=== PATIENT | male | born 1990 | race Hispanic/Latino ===

== ENCOUNTER 2016-08-19 05:56 | Day surgery (SDC) | payer OTHER ==
[~2016-08-19 05:56] MED LIST: OMNIPAQUE 300 MG/50 ML (CATH LAB) IV ONE; WATER FOR IRRIG STERILE IR ONE
[2016-08-19] MEDS ORDERED: SUBLIMAZE IV PRN (07:01)
[2016-08-19] MEDS ORDERED: ZOFRAN IV PRN (07:01)
--- NOTE | 2016-08-19 07:02 | Anesthesia Day of Surgery ---
Anesthesia Day of Surgery - Day of Surgery Patient Examined: Yes Patient H&P Reviewed: Yes Patient is NPO: Yes
--- NOTE | 2016-08-19 07:03 | Anesthesia Consultation ---
Anesthesia Consult and Med Hx Date of service: 08/19/16 - Airway Anesthetic Teeth Evaluation: Good ROM Head & Neck: Adequate Mental/Hyoid Distance: Adequate Mallampati Class: Class I Intubation Access Assessment: Good - Pulmonary Exam CTA: Yes (clear blbs) - Cardiac Exam Cardiac Exam: RRR - Pre-Operative Health Status ASA Pre-Surgery Classification: ASA2 Proposed Anesthetic Plan: General - Pulmonary Hx Smoking: No Hx Asthma: Yes (NO MEDS) Hx Sleep Apnea: No (BHARGAVI PRE SCREEN LOW RISK) - Other Systems Hx Cancer: No
[2016-08-19] MEDS ORDERED: DIPRIVAN 10 MG/ML IV ONE (07:07)
[2016-08-19] MEDS ORDERED: XYLOCAINE MPF 2% ONE (07:07)
[2016-08-19] MEDS ORDERED: VERSED IV NR (08:00)
[2016-08-19] MEDS ORDERED: NACL 0.9% 1000 ML 1,000 ML IV SCH (08:00)
[2016-08-19] MEDS ORDERED: PEPCID PO NR (08:00)
[2016-08-19] MEDS ORDERED: DECADRON ONE (08:17)
[2016-08-19] MEDS ORDERED: ZOFRAN ONE (08:17)
[2016-08-19] MEDS ORDERED: WATER FOR IRRIG STERILE IR ONE (08:19)
--- NOTE | 2016-08-19 08:19 | Short Stay Summary ---
Short Stay Documentation Date of service: 08/19/16 - History H&P: obtained from office - Allergies and Medications Current Medications: Allergies No Known Allergies Allergy (Verified 08/18/16 16:50) Home Medications Medication Instructions Recorded Confirmed Last Taken Type No Known Home Medications [No 08/18/16 08/18/16 Unknown History Reported Home Medications] Active Medications Famotidine (Pepcid) 20 mg PO PREOP NR Stop: 08/19/16 23:59 Last Admin: 08/19/16 07:48 Dose: 20 mg Fentanyl (Sublimaze) 50 mcg IV Q5MIN PRN PRN Reason: Pain , Severe (7-10) Stop: 08/19/16 18:00 Hydromorphone HCl (Dilaudid) 0.5 mg IV Q10MIN PRN PRN Reason: Pain , Severe (7-10) Stop: 08/19/16 18:00 Sodium Chloride (Nacl 0.9% 1000 Ml) 1,000 mls @ 100 mls/hr IV DIRECT MAURICIO Last Admin: 08/19/16 07:50 Dose: 100 mls/hr Midazolam HCl (Versed) 2 mg IV PREOP NR Stop: 08/19/16 23:59 Last Admin: 08/19/16 07:51 Dose: 2 mg Ondansetron HCl (Zofran) 4 mg IV ONCE PRN PRN Reason: Nausea And Vomiting Stop: 08/19/16 18:00 - Brief post op/procedure progress note Date of procedure: 08/19/16 Pre-op diagnosis: right ureteral stone 6mm Post-op diagnosis: same Procedure: cyst rpg urs, laser, sbe; stent 6x28; staged for removla; dilation all right Anesthesia: GETA Findings: impacted wall; sig edema; Surgeon: MITCH RALPH Estimated blood loss: minimal Pathology: list (stone) Specimen disposition: to lab Condition: stable - Hospital course Hospital course: orpacuhome - Disposition Condition at discharge: Good Disposition: DISCHARGED TO HOME OR SELFCARE Short Stay Discharge Plan Activity: advance as tolerated Diet: advance as tolerated Follow up with: MITCH RALPH MD [Staff Physician] - 7 Days
[2016-08-19] MEDS ORDERED: OMNIPAQUE 300 MG/50 ML (CATH LAB) IV ONE (08:23)
[2016-08-19] MEDS ORDERED: SUBLIMAZE ONE (09:28)
[2016-08-19] MEDS: DILAUDID IV PRN ×2 (10:00→10:10)
--- NOTE | 2016-08-19 10:21 | Post Anesthesia Evaluation ---
- Post Anesthesia Evaluation Patient Participated: Yes Airway Patent: Yes Stable Respiratory Function: Yes Nausea/Vomiting: No Temp > 96.8F: Yes Pain Manageable: Yes Adequeate Hydration: Yes Anesthesia Complications: No Block Receding Appropriately: Not Applicable Patient on Ventilator: No
[2016-08-19 11:12] VITALS: BP 131/72
--- NOTE | 2016-08-19 12:01 | Fluoroscopy Report ---
Retrograde pyelogram and ureteral dilatation: Small calculus identified in the low right pelvis. Injection of contrast into the left ureter demonstrates a normal collecting system. No filling defects noted. Injection on the right side demonstrates dilatation of the short segment of ureter ureter proximal to the distal calculus. A wire was subsequently passed into the renal collecting system. There is dilatation of the distal right ureter. A nephroureteral stent was left in place. The distal calculus initially visualized is no longer identified.
--- NOTE | 2016-08-23 22:03 | Operative Report ---
PREOPERATIVE DIAGNOSIS: Right ureteral 6 mm stone. POSTOPERATIVE DIAGNOSIS: Right ureteral 6 mm stone. PROCEDURE: Cysto RPG, ureteroscopy, stone basket extraction, stent 6 x 28 staged for future removal, dilation of right ureter. ANESTHESIA: General. FINDINGS: Impacted in the wall, significant edema, stone. SURGEON: Josse Mohr MD ESTIMATED BLOOD LOSS: Minimal. PATHOLOGY: Stone. SPECIMENS: To lab. CONDITION: Stable, DISPOSITION: PACU home . CLINICAL INDICATIONS: The patient was counseled on RCBA, antibiotics, SCDs. The patient with pain, had a history of pain intermittently over the last one month, 2 weeks ago at [facility], then recently at [facility]. He and the family were recounseled on options including ESWL, ureteroscopy ____ management, other desire to proceed. DESCRIPTION OF PROCEDURE: The patient was transferred to the OR suite in supine position, anesthesia, dorsal lithotomy, had antibiotics and SCDs, prepped and draped in standard fashion. A 22 Ivorian scope passed, normal penile, bulbar, prostatic urethra. Pancystoscopy 30 ____. No abnormality. Left ____ cannulated 8 Ivorian cone-tipped catheter, contrast injected. Normal left distal ureter, proximal ureter, renal pelvis calyces. No filling defects or hydronephrosis. Repeated on the right side with right hydroureter. Glidewire passed adjacent to the stone up to the renal pelvis. Next, a rigid ureteroscope was attempted passing directly to the stone, unable to easily pass due to the distal stenosis and the impaction. A 4 cm ureteral balloon dilator was passed inflated at about 7 atmospheres for approximately 60 seconds, then removed. Rigid ureteroscope passed up to the stone. Holmium laser was used to fragment the stone into small pieces. This was done intermittently with intermittent pieces being fragmenting, removed with the triceps grasper dropped in the bladder. One fragment was sent for ____. Scope was then passed up to the proximal ureter. No significant residual stones, fragments removed and contrast injected, confirmed our position and the wire position. The scope was slowly withdrawn and inspected very carefully multiple times. No residual stones. Wire was backloaded on cystoscope. A 6 x 28 double-J stent was passed over the wire under direct and fluoroscopic visualization. Wire and string was removed, nice proximal and distal J. Of note, contrast was injected towards the end of the procedure. No extravasation noted. At this point, the scope was withdrawn. Exam under anesthesia, bilateral testicles, no masses. The patient was awakened and transferred to the PACU in good and stable condition. PLAN: Staged for future removal of stent. JOB# [id number] ATS/NTS
== END 2016-08-19 11:45 | disposition home or self-care (01) ==
LOC: OR 05:56
PROVIDERS: ATTEND Urology
DX: N20.1 Calculus of ureter (principal); J45.909 Unspecified asthma, uncomplicated
CPT/HCPCS: 36415; 52356; 74420; 74485; 82365; 88300; A4217; C1726; C1758; C1769; C2617; J1100; J1170; J2250; J2405; J2704; J3010; J7030; Q9967

== ENCOUNTER 2016-09-01 10:27 | Day surgery (SDC) | payer OTHER ==
[~2016-09-01 10:27] MED LIST changes: +OMNIPAQUE (300 MG) IR ONE; -OMNIPAQUE 300 MG/50 ML (CATH LAB) IV ONE; -WATER FOR IRRIG STERILE IR ONE
--- NOTE | 2016-09-01 10:58 | Anesthesia Day of Surgery ---
Anesthesia Day of Surgery - Day of Surgery Patient Examined: Yes Patient H&P Reviewed: Yes Patient is NPO: Yes
--- NOTE | 2016-09-01 10:58 | Anesthesia Consultation ---
Anesthesia Consult and Med Hx Date of service: 09/01/16 - Airway Anesthetic Teeth Evaluation: Good ROM Head & Neck: Adequate Mental/Hyoid Distance: Adequate Mallampati Class: Class III Intubation Access Assessment: Probably Good - Pulmonary Exam CTA: Yes - Cardiac Exam Cardiac Exam: RRR - Pre-Operative Health Status ASA Pre-Surgery Classification: ASA2 - Pulmonary Hx Smoking: No Hx Asthma: Yes (NO MEDS. Patient describes no episodes within recent memory.) Hx Sleep Apnea: No (BHARGAVI PRE SCREEN LOW RISK) - Other Systems Hx Substance Use: No Hx Cancer: No - Additional Comments Anesthesia Medical History Comments: No previous anesthesia complications. Medications are for the pain associated with this procedure. Patient denies any medical symptoms, otherwise.
[2016-09-01] MEDS: VERSED IV PRN ×2 (11:26→11:34)
[2016-09-01] MEDS ORDERED: NACL 0.9% 1000 ML 1,000 ML IV SCH (11:30)
[2016-09-01] MEDS ORDERED: DILAUDID IV ONE (12:00)
[2016-09-01] MEDS ORDERED: PEPCID IV NR (12:00)
[2016-09-01] MEDS ORDERED: ANCEF/STERILE WATER 2 GM/20 ML IV NR (12:00)
[2016-09-01] MEDS ORDERED: DIPRIVAN 10 MG/ML IV ONE (13:00)
[2016-09-01] MEDS ORDERED: ZOFRAN ONE ×2 (13:01→16:17)
[2016-09-01] MEDS ORDERED: XYLOCAINE MPF 2% ONE (13:01)
[2016-09-01] MEDS ORDERED: DECADRON ONE (13:01)
[2016-09-01] MEDS ORDERED: DILAUDID ONE (13:02)
[2016-09-01] MEDS ORDERED: OMNIPAQUE (300 MG) IR ONE (13:34)
[2016-09-01] MEDS ORDERED: NACL 0.9% 1000 ML 1,000 ML ONE (13:44)
--- NOTE | 2016-09-01 14:37 | Cat Scan Report ---
CT OF THE ABDOMEN AND PELVIS WITHOUT CONTRAST HISTORY: Kidney stones, pain. TECHNIQUE: Helical CT without contrast. Sagittal and coronal reformatted images. FINDINGS: A right ureteral stent extends from the proximal right ureter to the bladder and into the penile urethra. There is no evidence for calcifications along the course of the ureter. There is mild right hydronephrosis and mild right perinephric stranding. The reason for the obstruction is not clearly evident other than stent malfunction. There is no obvious evidence for rupture of the right renal collecting system. The left kidney contains 3 renal stones but no evidence for hydronephrosis. The bladder is unremarkable. The liver, biliary system, pancreas, spleen, adrenal glands, aorta and bowel loops are unremarkable. The lung bases are clear. Heart size is normal. No suspicious bony lesion. IMPRESSION:Right ureteral stent as described above. Mild right hydronephrosis. These findings were discussed with Dr. Mohr at the time of this interpretation.
--- NOTE | 2016-09-01 14:39 | XRay Report ---
SUPINE KUB: The abdominal gas pattern is unremarkable. No masses or organomegaly is identified and there is no gross evidence of free air or fluid. No significant soft tissue calcifications are noted. A right ureteral stent extends from the proximal right ureter to the penile urethra. Stent migration should be considered. IMPRESSION: Right ureteral stent as described.
[2016-09-01] MEDS ORDERED: DEMEROL ONE (15:04)
--- NOTE | 2016-09-01 15:24 | Short Stay Summary ---
Short Stay Documentation Date of service: 09/01/16 - History H&P: obtained from office - Allergies and Medications Current Medications: Allergies No Known Allergies Allergy (Verified 08/18/16 16:50) Home Medications Medication Instructions Recorded Confirmed Last Taken Type Ciprofloxacin (Nf) [Cipro] 500 mg PO BID 09/01/16 09/01/16 09/01/16 08:30 History 500mg Diazepam [Diazepam] 5 mg PO ONCE 09/01/16 09/01/16 09/01/16 07:30 History Oxycodone HCl/Acetaminophen 10 mg PO Q6HR 09/01/16 09/01/16 09/01/16 08:00 History [OxyCODONE-Acetaminophen 10-325] 10mg Active Medications Sodium Chloride (Nacl 0.9% 1000 Ml) 1,000 mls @ 42 mls/hr IV DIRECT MAURICIO Last Admin: 09/01/16 11:23 Dose: 42 mls/hr - Brief post op/procedure progress note Date of procedure: 09/01/16 Pre-op diagnosis: Right retained stent Post-op diagnosis: same Procedure: cysto, right urs, stent pull, stent manipulations; 4.8 x 26 stent placement Anesthesia: GETA Findings: stent kinked, unable to untwist proximal end Surgeon: MITCH RALPH Estimated blood loss: minimal Pathology: none Condition: stable - Hospital course Hospital course: orpacuhome - Disposition Condition at discharge: Good Disposition: DISCHARGED TO HOME OR SELFCARE Short Stay Discharge Plan Activity: advance as tolerated Diet: advance as tolerated Follow up with: MITCH RALPH MD [Staff Physician] - 7 Days
[2016-09-01 16:16] VITALS: BP 134/89
[2016-09-01] MEDS ORDERED: ZOFRAN IM ONE (16:26)
--- NOTE | 2016-09-01 18:22 | Post Anesthesia Evaluation ---
- Post Anesthesia Evaluation Patient Participated: Yes Airway Patent: Yes Stable Respiratory Function: Yes Temp > 96.8F: Yes Pain Manageable: Yes Adequeate Hydration: Yes Anesthesia Complications: No Block Receding Appropriately: Not Applicable
--- NOTE | 2016-09-02 10:01 | Fluoroscopy Report ---
Retrograde pyelogram: Retained right ureteral stent. Images demonstrates a right nephroureteral catheter. Injection of contrast into the left ureter demonstrates a generally unremarkable ureter and intrarenal collecting system. The latter portion of the right ureter was externalized. Contrast was injected demonstrating a somewhat irregular contour of the distal third of the ureter with a focal area dilatation overlying the mid right sacrum. The more proximal ureter was unremarkable. A ureteral scope was passed into the ureter with extension of a wire into the renal collecting system. The contrasted system appears unremarkable. A right nephroureteral catheter was left in place.
--- NOTE | 2016-09-15 10:36 | Operative Report ---
PREOPERATIVE DIAGNOSIS: Retained stent. POSTOPERATIVE DIAGNOSIS: Retained stent. PROCEDURE: Cystoscopy, right ureteroscopy, right stent removal complicated, right stent replacement 4.7 Algerian. SURGEON: Josse Mohr MD ANESTHESIA: General. SPECIMENS: None. ESTIMATED BLOOD LOSS: Minimal. IMPLANTS: Stent. CLINICAL INDICATIONS: The patient counseled RCBA, antibiotics, SCDs. The patient has a history of having ureteroscopy with the stent, which was staged approximately 12 days previous to procedure. This was staged for stent removal, attempted in a wake setting when the patient was awake, unable to remove, stent there is some resistance. At this point, the patient was scheduled for same day for this procedure. Description of procedure: The patient had antibiotics, SCDs, transferred. CT scan was done before the procedure, did not seem to be there was any injury or any another damage. The patient was taken to the operating room anesthesia, supine position, prepped and draped in standard fashion. A 22-Algerian scope passed. A wire passed adjacent to the stent. Unable to remove the stent, tried to grasp and pull. Pulled to the meatus, unable to pass the wire up the stent. We were able to manipulate a rigid scope next to the stent up to the proximal j and was caught on the ureter, unable to pull down. This was a little bit difficult, but we were able to get to it with additional instruments and a grasper, we were able to push the stent into straight position, pulled the stent out. We then replaced injected contrast, there was no extravasation at all, but some proximal hydroureter and hydro, but no extravasation at all or injury to the ureter. At this point, a wire was replaced, a 4.7-Algerian stent was passed, wire removed, nice proximal and distal J, scope withdrawn. Plan was to remove the stent in a few days, allow area to decompress and heal. JOB# [id number] [facility]
== END 2016-09-01 16:55 | disposition home or self-care (01) ==
LOC: OR 10:27
PROVIDERS: ATTEND Urology
DX: Z46.6 Encounter for fitting and adjustment of urinary device (principal); I10 Essential (primary) hypertension; J45.909 Unspecified asthma, uncomplicated; Z79.899 Other long term (current) drug therapy; Z84.1 Family history of disorders of kidney and ureter; Z82.49 Family history of ischemic heart disease and other diseases of the circulatory system
CPT/HCPCS: 52332; 74000; 74176; 74420; 88300; C1758; C1769; C2617; J0690; J1100; J1170; J2175; J2250; J2405; J2704; J7030; Q9967; 88302

== ENCOUNTER 2016-09-04 12:00 | Day surgery (SDC) | payer OTHER ==
[~2016-09-04 12:00] MED LIST changes: -OMNIPAQUE (300 MG) IR ONE; +WATER FOR IRRIG STERILE IR ONE
[2016-09-04] MEDS ORDERED: ZOFRAN IV PRN (12:31)
[2016-09-04] MEDS ORDERED: DILAUDID IV PRN (12:31)
--- NOTE | 2016-09-04 12:32 | Anesthesia Day of Surgery ---
Anesthesia Day of Surgery - Day of Surgery Patient Examined: Yes Patient H&P Reviewed: Yes Patient is NPO: Yes
--- NOTE | 2016-09-04 12:39 | Anesthesia Consultation ---
Anesthesia Consult and Med Hx Date of service: 09/04/16 - Airway Anesthetic Teeth Evaluation: Good ROM Head & Neck: Adequate Mental/Hyoid Distance: Adequate Mallampati Class: Class II Intubation Access Assessment: Good - Pulmonary Exam CTA: Yes - Cardiac Exam Cardiac Exam: RRR - Pre-Operative Health Status ASA Pre-Surgery Classification: ASA2 Proposed Anesthetic Plan: General - Pulmonary Hx Smoking: No Hx Asthma: Yes (NO MEDS. ) Hx Sleep Apnea: No (BHARGAVI PRE SCREEN LOW RISK) - Cardiovascular System Hx Hypertension: No - Other Systems Hx Substance Use: No Hx Cancer: No
[2016-09-04] MEDS ORDERED: NACL 0.9% 1000 ML 1,000 ML IV SCH (13:00)
[2016-09-04] MEDS ORDERED: PEPCID PO NR (13:00)
[2016-09-04] MEDS ORDERED: VERSED IV NR (13:00)
[2016-09-04] MEDS ORDERED: DIPRIVAN 10 MG/ML IV ONE ×2 (14:10→14:59)
[2016-09-04] MEDS ORDERED: XYLOCAINE MPF 2% ONE (14:10)
[2016-09-04] MEDS ORDERED: DILAUDID ONE (14:58)
[2016-09-04] MEDS ORDERED: ANCEF/STERILE WATER 2 GM/20 ML IV NR (15:00)
[2016-09-04] MEDS ORDERED: ZOFRAN ONE (15:07)
[2016-09-04] MEDS ORDERED: DECADRON ONE (15:07)
[2016-09-04] MEDS ORDERED: WATER FOR IRRIG STERILE IR ONE (15:10)
[2016-09-04] MEDS ORDERED: OMNIPAQUE (300 MG) IR ONE (15:10)
--- NOTE | 2016-09-04 15:28 | Short Stay Summary ---
Short Stay Documentation Date of service: 09/04/16 - History H&P: obtained from office - Allergies and Medications Current Medications: Allergies No Known Allergies Allergy (Verified 08/18/16 16:50) Home Medications Medication Instructions Recorded Confirmed Last Taken Type Cefuroxime Axetil [Ceftin] 500 mg PO Q12H #14 tablet 09/01/16 09/03/16 Unknown Rx HYDROcodone/APAP 5-325 [[place] 1 each PO Q4HR PRN #20 tablet 09/01/16 09/03/16 Unknown Rx 5-325 mg TAB] Ketorolac [Toradol] 10 mg PO Q6H PRN #20 tablet 09/01/16 09/03/16 Unknown Rx Oxycodone HCl/Acetaminophen 10 mg PO PRN PRN 09/01/16 09/03/16 09/01/16 08:00 History [OxyCODONE-Acetaminophen 10-325] 10mg Active Medications Cefazolin Sodium (Ancef/Sterile Water 2 Gm/20 Ml) 2 gm IV PREOP NR Stop: 09/04/16 23:59 Famotidine (Pepcid) 20 mg PO PREOP NR Stop: 09/04/16 23:59 Last Admin: 09/04/16 13:19 Dose: 20 mg Hydromorphone HCl (Dilaudid) 0.5 mg IV Q10MIN PRN PRN Reason: Pain , Severe (7-10) Stop: 09/04/16 23:59 Sodium Chloride (Nacl 0.9% 1000 Ml) 1,000 mls @ 75 mls/hr IV DIRECT MAURICIO Last Admin: 09/04/16 13:19 Dose: 75 mls/hr Midazolam HCl (Versed) 2 mg IV PREOP NR Stop: 09/04/16 23:59 Last Admin: 09/04/16 13:20 Dose: 2 mg - Brief post op/procedure progress note Date of procedure: 09/04/16 Pre-op diagnosis: retained stent /s tones Post-op diagnosis: same Procedure: cysto, rpg, right right ureteral stent removal Anesthesia: GETA Findings: easily removed; stent intact rpt no extrav Surgeon: MITCH RALPH Estimated blood loss: minimal Pathology: none Condition: stable - Hospital course Hospital course: orpacuhome - Disposition Condition at discharge: Good Disposition: DISCHARGED TO HOME OR SELFCARE Short Stay Discharge Plan Activity: advance as tolerated Diet: advance as tolerated Follow up with: MITCH RALPH MD [Staff Physician] - 7 Days
[2016-09-04] MEDS ORDERED: DEMEROL ONE (15:32)
[2016-09-04 15:56] VITALS: BP 125/70
[2016-09-04] MEDS ORDERED: NACL 0.9% 1000 ML 1,000 ML ONE (17:07)
--- NOTE | 2016-09-05 09:47 | Fluoroscopy Report ---
EIGHT FLUOROSCOPIC IMAGES AT RIGHT RETROGRADE PYELOGRAM AND STENT REMOVAL: 09/04/16 CLINICAL: Retained right ureteral stent. FINDINGS: [employer] images demonstrate a right ureteral stent.. Subsequent images demonstrate retrograde opacification of a minimally dilated right renal collecting system. Final images show removal of the stent and complete drainage of the right renal collecting system and ureter. For more detail, please refer to the operative report.
--- NOTE | 2016-09-07 08:36 | Operative Report ---
PREOPERATIVE DIAGNOSES: History of ureteral stone, retained stent. POSTOPERATIVE DIAGNOSES: History of ureteral stone, retained stent. PROCEDURE: Cystoscopy, right RPG, right stent removal and no replacement. SURGEON: Josse Mohr MD ANESTHESIA: General. SPECIMENS: None. ESTIMATED BLOOD LOSS: Minimal. COMPLICATIONS: None. FINDINGS: Some stone debris within the bladder, RPG with no extravasation, proximal ureter dilation had improved versus previously. IMPLANTS: None. CLINICAL INDICATIONS: The patient was counseled RCBA, antibiotics, SCDs. The patient had history of having ureteroscopy and a stent about 13-14 days. The stent was retained and unable to remove easily and required ureteroscopy to remove the stent due to ____ and unable to address proximal J ____ stent removed, replaced with a 4.7 Serbian stent. But given history of this problem and possible other risk factors of stent becoming more rigid over time, he elected to go ahead and proceed with as discussed with the family on removal within a few days given risk of making more difficult for stent in for extended times. DESCRIPTION OF PROCEDURE: The patient had antibiotics, SCDs. The patient was transferred to the OR suite, supine position, anesthesia, dorsal lithotomy, prepped and draped in our standard fashion. A 20-Serbian scope passed. Normal penile, bulbar prostatic urethra. Upon entering bladder. right stent was visualized, grasped under fluoroscopic visualization, pulled out intact. The proximal J uncurled without difficulty. Retrograde pyelogram was performed. Normal right distal ureter, proximal ureter. It seemed to taper well, much better than did previously. Previously did have some dilation of the proximal ureter that seemed to be less dilated then before. No extravasation. At this point, it was elected to leave the system with no stent. Scope withdrawn. Exam under anesthesia, bilateral testicles, no masses. The patient awakened and transferred to the PACU in good and stable condition. JOB# [id number] ATS/NTS
== END 2016-09-04 17:30 | disposition home or self-care (01) ==
LOC: OR 12:00
PROVIDERS: ATTEND Urology
DX: Z46.6 Encounter for fitting and adjustment of urinary device (principal); J45.909 Unspecified asthma, uncomplicated; I10 Essential (primary) hypertension; Z79.899 Other long term (current) drug therapy; Z84.1 Family history of disorders of kidney and ureter; Z82.49 Family history of ischemic heart disease and other diseases of the circulatory system
CPT/HCPCS: 52310; 74420; A4217; C1758; C1769; J0690; J1100; J1170; J2175; J2250; J2405; J2704; J7030; Q9967